=== PATIENT | female | born 1990 ===

== ENCOUNTER 2020-05-08 00:28 | Observation (INO) | payer OTHER ==
[~2020-05-08] VITALS: Ht 162.6 cm; Wt 73.9 kg
[2020-05-08 01:53] VITALS: BP 101/56
== END 2020-05-08 05:25 | disposition home or self-care (01) ==
LOC: 4S 00:28
PROVIDERS: ADMIT Obstetrics & Gynecology; ATTEND Obstetrics & Gynecology
DX: O26.893 Other specified pregnancy related conditions, third trimester (principal); R10.30 Lower abdominal pain, unspecified; Z3A.38 38 weeks gestation of pregnancy
CPT/HCPCS: 76811; 80307; 87081; 96360; 96361; 99219